=== PATIENT | female | born 1945 | race Caucasian/White ===

== ENCOUNTER → 2017-12-15 | Outpatient (CLI) | payer MEDICARE, OTHER ==
[~2017-12-15] MED LIST: "\\\"BLOOD PRESSURE MED\\\""; ASPIR 8181 MG PO; BIOTIN5000 MC1 PO; GLUCOSAMINE HC500 MG PO; LISINOPRIL20 MG PO; NAPROSYN250 MG PO; OCUVITE LUTEIN1 EAC2 PO; OMEPRAZOLE40 MG PO; OXYBUTYNIN 5 MG5 M2 PO; ROBAXIN 750 MG750 M1 PO; TRIPLE OMEGA C400 MG PO; ULTRAM 50MG TAB50 MG PO; UNICOMPLEX M TA1 TA1 PO; ZANTAC 150MG T150 MG PO; ZESTORETIC 20-1 EAC3 PO
== END ==
LOC: M.RAD 10:20
DX: J98.4 Other disorders of lung (principal); W19.XXXD Unspecified fall, subsequent encounter

== ENCOUNTER 2018-06-07 14:33 | Outpatient (CLI) | payer MEDICARE, OTHER ==
[~2018-06-07] VITALS: Ht 160 cm; Wt 77.1 kg
[~2018-06-07 14:33] MED LIST changes: -ASPIR 8181 MG PO; -BIOTIN5000 MC1 PO; -GLUCOSAMINE HC500 MG PO; -LISINOPRIL20 MG PO; -OCUVITE LUTEIN1 EAC2 PO; -OMEPRAZOLE40 MG PO; -OXYBUTYNIN 5 MG5 M2 PO; -ROBAXIN 750 MG750 M1 PO; -TRIPLE OMEGA C400 MG PO; -UNICOMPLEX M TA1 TA1 PO; -ZANTAC 150MG T150 MG PO; -ZESTORETIC 20-1 EAC3 PO
[2018-06-07 14:37] VITALS: BP 145/68
[2018-06-07] MEDS ORDERED: OMEPRAZOLE40 MG PO (14:41)
[2018-06-07] MEDS ORDERED: ZANTAC 150MG T150 MG PO (14:41)
[2018-06-07] MEDS ORDERED: OCUVITE LUTEIN1 EAC2 PO (14:42)
[2018-06-07] MEDS ORDERED: ASPIR 8181 MG PO (14:42)
[2018-06-07] MEDS ORDERED: BIOTIN5000 MC1 PO (14:42)
[2018-06-07] MEDS ORDERED: TRIPLE OMEGA C400 MG PO (14:42)
[2018-06-07] MEDS ORDERED: ZESTORETIC 20-1 EAC3 PO (14:42)
[2018-06-07] MEDS ORDERED: GLUCOSAMINE HC500 MG PO (14:43)
[2018-06-07] MEDS ORDERED: OXYBUTYNIN 5 MG5 M2 PO (14:43)
[2018-06-07] MEDS ORDERED: UNICOMPLEX M TA1 TA1 PO (14:43)
[2018-06-07 15:10] LABS: ABSOLUTE BASOPHILS 0.1 thou/uL (0.0-0.2); ABSOLUTE EOSINOPHILS 0.1 thou/uL (0.0-0.7); ABSOLUTE LYMPHOCYTES 1.7 thou/uL (0.8-5.3); ABSOLUTE NEUTROPHILS 6.5 thou/uL (1.6-8.1); BASOPHILS 0.7 %; EOSINOPHILS 1.3 %; HEMATOCRIT 37.8 % (37.0-47.0); HEMOGLOBIN 12.4 gm/dL (12.0-15.0); MCHC 32.8 g/dL (28.0-37.0); MCV 85.4 fL (80.0-100.0); MONOCYTES 10.3 %; NUCLEATED RBCS 0 /100WBC; PLATELET COUNT* 241 thou/uL (150-400); POLYS 69.7 %; RBC 4.43 mil/uL (4.20-5.00); RDW-CV 15.3 % (10.5-14.5); WBC 9.4 thou/uL (4.0-11.0)
[2018-06-07 15:17] LABS: ANION GAP 3 mmol/L (7-16); BUN 17 mg/dL (7-18); CALCIUM 8.4 mg/dL (8.5-10.1); CHLORIDE 93 mmol/L (98-107); CO2 30 mmol/L (21-32); CREATININE 0.7 mg/dL (0.6-1.3); GLUCOSE 131 mg/dL (70-99); POTASSIUM 3.4 mmol/L (3.5-5.1); SODIUM 126 mmol/L (136-145)
[2018-06-07 15:25] LABS: ALBUMIN 3.1 g/dL (3.4-5.0); ALKALINE PHOSPHATASE 80 U/L (46-116); SGOT 19 U/L (15-37); SGPT 25 U/L (30-65); TOTAL BILIRUBIN 0.5 mg/dL (<0.1-1.0); TOTAL PROTEIN 7.3 g/dL (6.4-8.2); TROPONIN-I LEVEL <0.06 ng/mL (<0.06)
[2018-06-07 16:16] LABS: URINE BILIRUBIN NEGATIVE (Negative); URINE BLOOD 2+ (Negative); URINE CLARITY CLEAR; URINE COLOR YELLOW; URINE GLUCOSE-RANDOM NEGATIVE (Negative); URINE KETONES NEGATIVE (Negative); URINE LEUKOCYTES-REFLEX NEGATIVE (Negative); URINE NITRITE-REFLEX NEGATIVE (Negative); URINE PROTEIN NEGATIVE (Negative); URINE UROBILINOGEN 0.2 E.U./dl (0.2-1.0)
[2018-06-07 16:26] LABS: CRYSTALS None Seen /LPF (None Seen); HYALINE CASTS 4-10 Moderate /LPF (None Seen); MUCUS None Seen strn/LPF (None Seen); SQUAMOUS 0-3 Few /LPF (0-3)
[2018-06-07 16:27] LABS: BACTERIA-REFLEX None Seen /HPF (None Seen); URINE RBC 3-10 Few /HPF (0-2); URINE WBC-REFLEX 0-5 Rare /HPF (0-5)
[2018-06-07] MEDS ORDERED: LISINOPRIL20 MG PO (16:39)
[2018-06-07] MEDS ORDERED: ROBAXIN 750 MG750 M1 PO (16:39)
--- NOTE | 2018-06-08 09:18 | EKG ---
[place] [address] ELECTROCARDIOGRAM REPORT Name: CATALINA DE LA TORRE Room: [facility]#: [id number] Admission: 06/07/18 Attend Phys: Steffen Quezada DO Discharge: Date of : 41 Report #: [id number] THIS REPORT FOR: //name// [facility] ED Test Date: 2018-06-07 Test Time: 14:41:41 Pat Name: CATALINA DE LA TORRE Department: Room: Gender: F Avionics Mechanic: Anthony MATHEWS : 1945 Requested By: Madie Sánchez Order Number: [id number] MD: Mohsen Torres Measurements Intervals [place] Rate: 62 P: 49 CT: 183 QRS: -21 QRSD: 96 T: 22 QT: 430 QTc: 437 Interpretive Statements Sinus rhythm Abnormal R-wave progression, early transition Left ventricular hypertrophy Baseline wander in lead(s) V4 No previous ECG available for comparison Electronically Signed On 06-08-2018 9:18:31 CDT by Mohsen Torres [email or web address] <ELECTRONICALLY SIGNED> By: Mohsen Torres MD, [facility] 06/08/18917 1441 1441 Mohsen Torres MD, [facility] /EPI
== END 2018-06-07 17:00 | disposition home or self-care (01) ==
LOC: M.ERS 17:00
PROVIDERS: Nurse Practitioner Family
DX: Z12.31 Encounter for screening mammogram for malignant neoplasm of breast (principal); I51.7 Cardiomegaly; Z78.0 Asymptomatic menopausal state

== ENCOUNTER → 2018-07-07 | Outpatient (CLI) | payer MEDICARE, OTHER ==
[~2018-07-07] MED LIST changes: +ASPIR 8181 MG PO; +BIOTIN5000 MC1 PO; +GLUCOSAMINE HC500 MG PO; +LISINOPRIL20 MG PO; +OCUVITE LUTEIN1 EAC2 PO; +OMEPRAZOLE40 MG PO; +OXYBUTYNIN 5 MG5 M2 PO; +ROBAXIN 750 MG750 M1 PO; +TRIPLE OMEGA C400 MG PO; +UNICOMPLEX M TA1 TA1 PO; +ZANTAC 150MG T150 MG PO; +ZESTORETIC 20-1 EAC3 PO
== END ==
LOC: M.RAD 13:28
DX: N63.20 Unspecified lump in the left breast, unspecified quadrant (principal); M81.0 Age-related osteoporosis without current pathological fracture; R92.8 Other abnormal and inconclusive findings on diagnostic imaging of breast; Z78.0 Asymptomatic menopausal state

== ENCOUNTER → 2018-07-08 | Outpatient (CLI) | payer MEDICARE, OTHER ==
--- NOTE | 2018-07-12 15:07 | PATH ---
[place] [address] PATHOLOGY RPT PROCEDURE Name: ANGELY NICHOLAS Room: [facility] KEVIN Gaming#: [id number] Admission: 07/08/18 Date of : 41 Discharge: Report #: [id number] Path Case #: [id number] [facility] Accession Number: [id number] . 01 Material submitted: . LEFT BREAST . 01 Clinical history: . 1.3 x 0.63 x 1.1 cm mass; 1:00, 2 cm from nipple . 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 - ATYPICAL LOBULAR HYPERPLASIA. SEE COMMENT. LBQ/07/10/2018 . 02 Comment: Atypical ductal hyperplasia is seen to involve ductal spaces including an ectatic ductal space showing some papilloma in several sections. Reviewed with Dr. Jamie Saravia who agrees with the diagnosis. Esperanza Valdez (acting [facility] breast navigator) notified at approximately 1040 on 07/12/2018. (LEAH/db; 07/10/18) . 02 Electronically signed: . Kenton Nicholas MD, Pathologist NPI- [id number] . 01 Gross description: . Received in formalin labeled "Yu Angely, left breast, 1:00 2 cm fn," are multiple needle cores of yellow-benítez fibrofatty tissue measuring 3.8 x 4.9 x 0.8 cm in aggregate dimensions. The tissue is submitted in its entirety in cassettes A1 through A4. The cold ischemic time is 8 minutes. The total formalin fixation time is 14 hours and 20 minutes. (TSD; 07/08/2018) TOB/TOB . 02 Pathologist provided ICD-10: N60.92 . 02 CPT . 414130 Performed at: [address] [id number] MD Andrei Fox MD Phone: [phone] Performed at: 02 [place] [address] PATHOLOGY RPT PROCEDURE Name: ANGELY NICHOLAS Room: [facility]#: [id number] Admission: 07/08/18 Date of : 41 Discharge: Report #: [id number] Path Case #: [id number] [facility] [address], [place], [place] [id number] MD Kenton Nicholas MD Phone: [phone]
== END | disposition home or self-care (01) ==
LOC: M.ULTRA 07:59
DX: D24.2 Benign neoplasm of left breast (principal); N60.82 Other benign mammary dysplasias of left breast; R92.1 Mammographic calcification found on diagnostic imaging of breast; Z88.0 Allergy status to penicillin; Z88.8 Allergy status to other drugs, medicaments and biological substances; Z79.82 Long term (current) use of aspirin; Z79.899 Other long term (current) drug therapy

== ENCOUNTER → 2018-07-30 | Outpatient (CLI) | payer MEDICARE, OTHER | LOC: M.RAD 13:47 | DX: M77.32 Calcaneal spur, left foot (principal); I10 Essential (primary) hypertension; K21.9 Gastro-esophageal reflux disease without esophagitis ==

== ENCOUNTER 2019-03-21 08:23 | Emergency (ER) | payer MEDICARE, OTHER ==
[~2019-03-21] VITALS: Ht 162.6 cm; Wt 81.2 kg
[2019-03-21] MEDS ORDERED: TUMS PO (08:35)
[2019-03-21] MEDS ORDERED: EVISTA PO (08:35)
[2019-03-21 08:42] LABS: ABSOLUTE BASOPHILS 0.1 thou/uL (0.0-0.2); ABSOLUTE LYMPHOCYTES 0.9 thou/uL (0.8-5.3); ABSOLUTE MONOCYTES 0.7 thou/uL (0.0-1.2); ABSOLUTE NEUTROPHILS 5.4 thou/uL (1.6-8.1); BASOPHILS 0.8 %; EOSINOPHILS 0.4 %; HEMATOCRIT 43.5 % (37.0-47.0); HEMOGLOBIN 14.4 gm/dL (12.0-15.0); LYMPHOCYTES 12.2 %; MCHC 33.1 g/dL (28.0-37.0); MCV 87.5 fL (80.0-100.0); MONOCYTES 9.3 %; MPV 8.3 fl. (7.2-11.1); NUCLEATED RBCS 0 /100WBC; PLATELET COUNT* 220 thou/uL (150-400); POLYS 77.3 %; RBC 4.97 mil/uL (4.20-5.00); RDW-CV 14.7 % (10.5-14.5)
[2019-03-21 08:56] LABS: ALBUMIN 3.4 g/dL (3.4-5.0); CALCIUM 8.7 mg/dL (8.5-10.1); CREATININE 0.8 mg/dL (0.6-1.3); POTASSIUM 3.1 mmol/L (3.5-5.1); TOTAL BILIRUBIN 0.5 mg/dL (<0.1-1.0); TOTAL PROTEIN 7.4 g/dL (6.4-8.2)
[2019-03-21 09:13] LABS: URINE BILIRUBIN NEGATIVE (Negative); URINE BLOOD 1+ (Negative); URINE CLARITY CLEAR; URINE COLOR YELLOW; URINE GLUCOSE-RANDOM NEGATIVE (Negative); URINE KETONES TRACE (Negative); URINE LEUKOCYTES-REFLEX 3+ (Negative); URINE NITRITE-REFLEX NEGATIVE (Negative); URINE PROTEIN TRACE (Negative); URINE SPECIFIC GRAVITY 1.015 (1.005-1.030)
[2019-03-21 09:24] LABS: BACTERIA-REFLEX 1-9 Few /HPF (None Seen); CASTS None Seen /LPF (None Seen); CRYSTALS None Seen /LPF (None Seen); MUCUS None Seen strn/LPF (None Seen); SQUAMOUS 0-3 Few /LPF (0-3); URINE RBC 3-10 Few /HPF (0-2); URINE WBC-REFLEX >25 Many /HPF (0-5)
[2019-03-21] MEDS ORDERED: CIPROFLOXACIN500 M1 PO (09:42)
[2019-03-21] MEDS ORDERED: ZOFRAN ODT4 MG SUBLING (09:42)
[2019-03-21 10:05] VITALS: BP 136/74
== END 2019-03-21 10:05 | disposition home or self-care (01) ==
LOC: M.ERS 08:23
PROVIDERS: Family Medicine
DX: N39.0 Urinary tract infection, site not specified (principal); R11.2 Nausea with vomiting, unspecified; I10 Essential (primary) hypertension; K21.9 Gastro-esophageal reflux disease without esophagitis; Z88.0 Allergy status to penicillin; Z88.5 Allergy status to narcotic agent; Z96.653 Presence of artificial knee joint, bilateral

== ENCOUNTER → 2019-06-30 | Outpatient (CLI) | payer MEDICARE, OTHER ==
[~2019-06-30] MED LIST changes: +CIPROFLOXACIN500 M1 PO; +EVISTA PO; +TUMS PO; +ZOFRAN ODT4 MG SUBLING
== END ==
LOC: M.LAB 05:05
DX: E87.6 Hypokalemia (principal); R35.8 Other polyuria

== ENCOUNTER 2019-12-12 10:32 | Emergency (ER) | payer MEDICARE, OTHER ==
[~2019-12-12] VITALS: Ht 160 cm; Wt 82.6 kg
[2019-12-12] MEDS ORDERED: NOLVADEX20 MG PO (10:48)
[2019-12-12 11:08] LABS: ABSOLUTE BASOPHILS 0.1 thou/uL (0.0-0.2); ABSOLUTE EOSINOPHILS 0.1 thou/uL (0.0-0.7); ABSOLUTE MONOCYTES 0.6 thou/uL (0.0-1.2); ABSOLUTE NEUTROPHILS 7.2 thou/uL (1.6-8.1); BASOPHILS 0.8 %; EOSINOPHILS 1.4 %; LYMPHOCYTES 20.1 %; MCH 29.6 pg (26.0-34.0); MONOCYTES 6.2 %; MPV 8.5 fl. (7.2-11.1); NUCLEATED RBCS 0 /100WBC; PLATELET COUNT* 190 thou/uL (150-400); POLYS 71.5 %; RBC 4.72 mil/uL (4.20-5.00); RDW-CV 14.1 % (10.5-14.5)
[2019-12-12 11:18] LABS: CALCIUM 8.5 mg/dL (8.5-10.1); CREATININE 0.6 mg/dL (0.6-1.3)
[2019-12-12 11:19] LABS: APTT 25.5 Seconds (25.0-31.3); PROTIME 10.1 Seconds (9.20-11.50)
[2019-12-12 11:22] LABS: ALBUMIN 3.6 g/dL (3.4-5.0); TOTAL BILIRUBIN 0.2 mg/dL (<0.1-1.0); TOTAL PROTEIN 7.5 g/dL (6.4-8.2)
[2019-12-12 12:45] LABS: URINE BILIRUBIN NEGATIVE (Negative); URINE BLOOD TRACE (Negative); URINE CLARITY CLEAR; URINE COLOR YELLOW; URINE GLUCOSE-RANDOM NEGATIVE (Negative); URINE KETONES NEGATIVE (Negative); URINE LEUKOCYTES-REFLEX NEGATIVE (Negative); URINE NITRITE-REFLEX NEGATIVE (Negative); URINE PROTEIN NEGATIVE (Negative); URINE UROBILINOGEN 0.2 E.U./dl (0.2-1.0)
--- NOTE | 2019-12-12 15:35 | EKG ---
[place] [address] ELECTROCARDIOGRAM REPORT Name: CATALINA DE LA TORRE Room: [facility]#: [id number] Admission: 12/12/19 Attend Phys: Discharge: Date of : 41 Report #: [id number] THIS REPORT FOR: //name// [facility] ED Test Date: 2019-12-12 Test Time: 12:45:42 Pat Name: CATALINA DE LA TORRE Department: Room: Gender: F Representative: : 1945 Requested By: Loreto Sharp Order Number: [id number] MD: Mohsen Torres Measurements Intervals [place] Rate: 76 P: 54 [place]: 172 QRS: -37 QRSD: 89 T: 52 QT: 441 QTc: 496 Interpretive Statements Sinus rhythm Left ventricular hypertrophy Borderline prolonged QT interval Compared to ECG 06/07/2018 14:41:41 No significant changes Electronically Signed On 12-12-2019 15:35:12 [employer] EXPERT by Mohsen Torres [email or web address] <ELECTRONICALLY SIGNED> By: Mohsen Torres MD, [facility] 12/12/19 1535 1245 1245 Mohsen Torres MD, [facility] /EPI
[2019-12-12] MEDS ORDERED: TRAMADOL 50 MG50 MG PO (15:45)
[2019-12-12] MEDS ORDERED: ONDANSETRON HCL4 M2 PO (15:45)
[2019-12-12 16:01] VITALS: BP 169/83
== END 2019-12-12 16:04 | disposition home or self-care (01) ==
LOC: M.ERS 10:32
PROVIDERS: Nurse Practitioner Family
DX: N83.202 Unspecified ovarian cyst, left side (principal); N83.201 Unspecified ovarian cyst, right side; I10 Essential (primary) hypertension; K21.9 Gastro-esophageal reflux disease without esophagitis; Z88.0 Allergy status to penicillin; Z88.5 Allergy status to narcotic agent; Z90.49 Acquired absence of other specified parts of digestive tract; Z96.653 Presence of artificial knee joint, bilateral

== ENCOUNTER → 2021-02-13 | Outpatient (CLI) | payer MEDICARE, OTHER ==
[~2021-02-13] MED LIST changes: +NOLVADEX20 MG PO; +ONDANSETRON HCL4 M2 PO; +TRAMADOL 50 MG50 MG PO
== END ==
LOC: M.RAD 09:02
PROVIDERS: ATTEND Family Medicine
DX: Z78.0 Asymptomatic menopausal state (principal)